=== PATIENT | female | born 1945 | race Caucasian/White ===

== ENCOUNTER 2017-12-08 22:03 | Inpatient (IN) | payer OTHER ==
[~2017-12-08] VITALS: Ht 152.4 cm; Wt 71.7 kg
[~2017-12-08 22:03] MED LIST: CALTRATE 600 +1 EAC1 PO; CENTRUM SILVER1 EAC4 PO; CHILD ASPIRIN81 M1 PO; LIPITOR10 MG PO; LORCET 5-325 M1 EACH PO; OMEPRAZOLE40 M1 PO; VIACTIV SOFT C1 EACH PO
[2017-12-09 09:39] VITALS: BP 137/70
[2017-12-09 09:43] LABS: HEMATOCRIT 38.7 % (36.0-46.0); HEMOGLOBIN 12.7 G/DL (11.9-15.5); MCH 29.3 PG (29.0-34.0); MCHC 32.8 G/DL (30.0-36.0); MCV 89.2 FL (83-99); PLATELET COUNT 247 K/uL (156-360); RBC DIS.WIDTH-CV 14.2 % (11.8-14.6); RBC DIS.WIDTH-SD 46.2 % (39-53); RED BLOOD COUNT 4.34 M/uL (3.80-5.20); WHITE BLOOD COUNT 5.7 K/uL (4.1-10.2)
[2017-12-09 10:08] LABS: CHLORIDE 106 MEQ/L (99-109); CREATININE 0.7 MG/DL (0.6-1.3); GFR ESTIMATE (CALCULATED) > 59 mL/min/; GLUCOSE 92 mg/dL (70-99); POTASSIUM 3.9 MEQ/L (3.7-5.4); SODIUM 143 MEQ/L (136-147); UREA NITROGEN (BUN) 8 mg/dL (9-23)
[2017-12-09 15:02] VITALS: BP 129/61
[2017-12-09 19:25] VITALS: BP 111/65
[2017-12-09 21:19] LABS: APPEARANCE CLEAR ((CLEAR)); BILIRUBIN NEGATIVE; BLOOD NEGATIVE; COLOR STRAW ((YELLOW)); GLUCOSE (STRIP) 50; KETONES NEGATIVE; LEUKOCYTES NEGATIVE; NITRITE NEGATIVE; PROTEIN (STRIP) NEGATIVE; SPECIFIC GRAVITY 1.008 (1.000-1.030); UROBILINOGEN 0.2 MG/DL (0.2-1.0)
[2017-12-09 23:20] VITALS: BP 110/54
[2017-12-10 03:11] VITALS: BP 112/48
[2017-12-10 07:46] VITALS: BP 109/57
[2017-12-10 11:38] VITALS: BP 112/60
== END 2017-12-10 11:40 | disposition home or self-care (01) | DRG 455 ==
LOC: ENRESERV 22:03 → 2SOUTH 12-09 09:01 → ENRESERV 12-09 10:23 → 2SOUTH 12-09 11:16 → 3EAST 12-09 14:54
PROVIDERS: Neurological Surgery
DX: M51.17 Intervertebral disc disorders with radiculopathy, lumbosacral region (principal); M48.061 Spinal stenosis, lumbar region without neurogenic claudication; K21.9 Gastro-esophageal reflux disease without esophagitis; Z88.5 Allergy status to narcotic agent; Z79.82 Long term (current) use of aspirin; Z96.653 Presence of artificial knee joint, bilateral
CPT/HCPCS: 72100; 76000; 80048; 81003; 85027; 86850; 86900; 86901; 93005; C1713; J0131; J0330; J0690; J1100; J1170; J2250; J2405; J3010; J3370; J3480; J7120; Q0175; S0020